=== PATIENT | female | born 1940 | race Caucasian/White ===

== ENCOUNTER 2023-03-19 09:23 | Emergency (ER) | payer MEDICARE, SELFPAY ==
--- NOTE | ~2023-03-19 | XR_ITS ---
[XR ribs LT 2V ] INDICATION: Left rib pain after fall TECHNIQUE: Frontal projection of the upper left ribs, frontal projection of the lower lobe ribs, obli que projection of all the left ribs, frontal inspiratory chest x-ray for interpretation. FINDINGS: There are no displaced rib fractures identified. There are no soft tissue abnormality see n. The lungs are clear. IMPRESSION: 1:No acute displaced rib fractures. Reviewed, dictated and finalized at location L.
[2023-03-19 09:25] VITALS: BP 124/88; PULSE 83; RESP 18; TEMP 36.8; O2SAT 94
[2023-03-19 09:35] VITALS: RESP 18; O2SAT 94
[2023-03-19] MEDS: KETOROLAC 30 MG/ML VIAL (*BKC) IM (09:50)
--- NOTE | 2023-03-19 10:19 | ED.FALL ---
HPI - Fall General Chief Complaint: Fall Stated Complaint: fall Time Seen by Provider: 03/19/23 09:28 Source: patient, family and EMS Mode of arrival: EMS Limitations: no limitations History of Present Illness HPI Narrative: This 82-year-old female that was brought in by EMS after she sustained a fall from the toilet seat as she was trying to sit and missed the toilet seat in it her left rib area on a cabinet causing pain and tenderness, there was no loss of consciousness no headache no blurry vision no nausea vomiting no other injuries neurological signs are intact with no neck or back pain. Patient has a history of atrial fibrillation her vitals are stable breathing easy O2 sats 94% on room air. complaint: fall Onset (ago): hour(s) Fall from: chair Fall witnessed: no Place fall occurred: home Loss of consciousness: none Prolonged down time: no Symptoms prior to fall: none Related Data Home Medications Medication Instructions Recorded Confirmed alendronate 70 mg tablet 70 mg PO WEEKLY 03/19/23 03/19/23 atorvastatin 10 mg tablet 10 mg PO DAILY 03/19/23 03/19/23 empagliflozin 10 mg tablet 10 mg PO DAILY 03/19/23 03/19/23 (Jardiance) metoprolol succinate 25 mg 25 mg PO BID 03/19/23 03/19/23 tablet,extended release 24 hr rivaroxaban 20 mg tablet (Xarelto) 20 mg PO QHS 03/19/23 03/19/23 sacubitril 24 mg-valsartan 26 mg 1 tablet PO BID 03/19/23 03/19/23 tablet (Entresto) spironolactone 50 mg tablet 50 mg PO DAILY 03/19/23 03/19/23 Allergies Allergy/AdvReac Type Severity Reaction Status Date / Time No Known Allergies Allergy Verified 03/19/23 09:35 Review of Systems Review of Systems: All systems reviewed & are unremarkable except as noted in HPI and below PMFSH Past Medical History Medical History Afib HLD (hyperlipidemia) Exam Const: General: healthy appearing Nutritional Appearance: well nourished Orientation/consciousness: patient oriented x3 Limitations: no limitations HENMT: Head: normal to inspection Face and sinus: normal facial exam Mouth: Yes Normal oral and palatal mucosa present Eyes: Conjunctivae: conjunctivae normal Pupils: Equal, round and reactive pupils present Neck: Neck: normal visual inspection Chest: Chest palpation & inspection: normal inspection of the chest Resp: Effort & Inspection: normal respiratory effort Auscultation: clear to auscultation bilaterally Cardio: Rate: regular rate Rhythm: regular rhythm GI: Auscultation: normal bowel sounds : General: Yes bladder normal to palpation Urinary Catheter: Urinary Catheter: patent and draining Skin: General skin exam: normal color Rashes: no rashes Wounds: no wounds Neuro: General: patient oriented x3 Cranial nerves: Yes Nystagmus not present Speech: normal speech Extrem: General: normal to inspection Other: tender left rib area with palpation Psych: Mental Status: mental status grossly normal Attitude: cooperative Course Course Emergency Course: reassessment of patient rib pain has some mildly improved with IM Toradol 30mg. Patient had x-ray performed of the left rib area which shows no acute fractures. Otherwise the patient is stable for discharge family is at her bedside and discussed follow-up with her primary if symptoms persist. Vital Signs Vital signs: Vital Signs Temperature 36.8 C 03/19/23 09:25 Pulse Rate 83 03/19/23 09:25 Respiratory Rate 18 03/19/23 09:25 Blood Pressure 124/88 03/19/23 09:25 Pulse Oximetry 94 03/19/23 09:25 Oxygen Delivery Room Air 03/19/23 09:25 Temperature 36.8 C 03/19/23 09:25 Pulse Rate 83 03/19/23 09:25 Respiratory Rate 18 03/19/23 09:35 Blood Pressure 124/88 03/19/23 09:25 Pulse Oximetry 94 03/19/23 09:35 Oxygen Delivery Room Air 03/19/23 09:25 Critical Care Time Critical Care Time Critical Care Time: No Discharge Plan Discharge Cli
[2023-03-19 10:28] VITALS: BP 129/79; PULSE 85; RESP 18; TEMP 36.7; O2SAT 94
== END 2023-03-19 10:33 | disposition home or self-care (01) ==
PROVIDERS: Emergency Provider Emergency Medicine; PCP Family Medicine
DX: S23.41XA Sprain of ribs, initial encounter (principal); I48.91 Unspecified atrial fibrillation; E78.5 Hyperlipidemia, unspecified; Z79.899 Other long term (current) drug therapy; Z79.01 Long term (current) use of anticoagulants; W18.12XA Fall from or off toilet with subsequent striking against object, initial encounter; Y92.002 Bathroom of unspecified non-institutional (private) residence as the place of occurrence of the external cause
CPT/HCPCS: 71100; 96372; 99283; J1885